=== PATIENT | male | born 1985 | race Caucasian/White ===

== ENCOUNTER 2019-07-18 16:31 | Emergency (ER) | payer SELFPAY ==
[2019-07-18] MEDS ORDERED: Sodium Chloride 0.9% 10 ML Syringe FLUSH PRN (17:42)
[2019-07-18] MEDS ORDERED: Sodium Chloride 0.9% 1,000 ML IV ONE (17:42)
[2019-07-18] MEDS ORDERED: Piperacillin/Tazobactam 4.5 GM in Sodium Chloride 0.9% 100 ML IV STA (17:52)
[2019-07-18] MEDS ORDERED: Ertapenem 1 GM in Sodium Chloride 0.9% 50 ML IV ONE (17:54)
--- NOTE | 2019-07-18 18:27 | EDM.PDOC ---
ED HPI GENERAL MEDICAL PROBLEM - General Chief Complaint: Abdominal Pain Stated Complaint: ABD PAIN Time Seen by Provider: 07/18/19 17:20 Source of Information: Reports: Patient History Limitations: Reports: No Limitations - History of Present Illness INITIAL COMMENTS - FREE TEXT/NARRATIVE: 33-year-old male is sent over from the walk-in clinic for ruptured appendicitis. Seen at the [facility]. Had labs and a CT done. White blood cell count is 21, hemoglobin 13.8, platelets 324. Sodium 139, potassium 4.0, chloride 100. Glucose 113. Creatinine 1.2. Anion gap 17. UA shows proteinuria. Negative for leukocytes and nitrites. Lipase of 16. Patient reports that he has been having lower quadrant abdominal pain for the last 10 days. He thought this was a gastroenteritis as he had similar episode about a month or 2 ago that lasted only a few days and then resolved. He reports that the pain has been consistent. It has been waxing and waning in intensity but is always present. Appreciated that is worse with movement. He did not have much of an appetite but feels hungry now. He reports symptoms of nausea and vomiting. He states he felt feverish and chilled. patient is on Coumadin for a DVT to the left leg 8 years ago. States he has not taken his Coumadin last 2 days. He denies any chest pain or any difficulty breathing. Patient is from [facility]. He is here working. Duration: Day(s): (10) Right Upper Abdomen Pain Score (Numeric/FACES): 2 - Related Data Allergies Allergy/AdvReac Type Severity Reaction Status Date / Time shellfish derived Allergy Vomiting Verified 07/18/19 16:53 Home Meds: Home Meds Warfarin [Coumadin] 5 mg PO DAILY 07/18/19 [History] Past Medical History Cardiovascular History: Reports: Blood Clots/VTE/DVT Other Cardiovascular History: 8-9 yrs ago Social & Family History - Tobacco Use Smoking Status *Q: Current Every Day Smoker Years of Tobacco use: 16 Packs/Tins Daily: 1 - Caffeine Use Caffeine Use: Reports: None - Recreational Drug Use Recreational Drug Use: No ED ROS GENERAL - Review of Systems Review Of Systems: See Below Constitutional: Reports: Fever, Chills, Malaise, Decreased Appetite Respiratory: Denies: Shortness of Breath Cardiovascular: Denies: Chest Pain GI/Abdominal: Reports: Abdominal Pain, Nausea, Vomiting ED EXAM, GI/ABD - Physical Exam Exam: See Below Exam Limited By: No Limitations General Appearance: Alert, WD/WN, Mild Distress, Thin Nose: Normal Inspection Throat/Mouth: Normal Inspection, Normal Voice, No Airway Compromise, Other (dry mucus membranes) Respiratory/Chest: No Respiratory Distress, Lungs Clear, Normal Breath Sounds Cardiovascular: Normal Peripheral Pulses, Regular Rate, Rhythm, No Murmur GI/Abdominal Exam: Normal Bowel Sounds, Soft, Guarding, Rebound, Tender (+ pain at [place]) Neurological: Alert, Oriented, Normal Cognition Psychiatric: Normal Affect, Normal Mood Skin Exam: Warm, Dry, Normal Color Course - Vital Signs Last Recorded V/S: Last Vital Signs Temp 99.4 F 07/18/19 16:48 Pulse 88 07/18/19 16:48 Resp 18 07/18/19 16:48 BP 114/71 07/18/19 16:48 Pulse Ox 97 07/18/19 16:48 - Orders/Labs/Meds Orders: Active Orders 24 hr Category Date Time Status Notify Provider Consults [RC] ASDIRECTED Care 07/18/19 17:44 Active Peripheral IV Care [RC] . DIRECTED Care 07/18/19 17:42 Active Consult to Physician [CONS] Stat Cons 07/18/19 17:42 Active Sodium Chloride 0.9% [Saline Flush] Med 07/18/19 17:42 Active 10 ml FLUSH ASDIRECTED PRN Peripheral IV Insertion Adult [OM.PC] Routine Oth 07/18/19 17:42 Ordered Medication Orders Sodium Chloride (Saline Flush) 10 ml FLUSH ASDIRECTED PRN PRN Reason: Keep Vein Open Last Admin: 07/18/19 17:52 Dose: 10 ml Labs: Laboratory Tests 07/18/19 Range/Units 18:50 PT 14.7 H (9.7-12.0) SECONDS INR 1.37 APTT 30 (22-31) SECONDS Meds: Medications Generic Name Dose Route Start Last Admin Trade Name Freq PRN Reason Stop Dose Admin Sodium Chloride 10 ml 07/18/19 17:42 07/18/19 17:52 Saline Flush FLUSH 10 ml ASDIRECTED PRN Administration Keep Vein Open Discontinued Medications Generic Name Dose Route Start Last Admin Trade Name Freq PRN Reason Stop Dose Admin Sodium Chloride 1,000 mls @ 999 mls/hr 07/18/19 17:42 07/18/19 17:52 Normal Saline IV 07/18/19 18:42 999 mls/hr ONETIME ONE Administration Piperacillin Sod/Tazobactam 100 mls @ 25 mls/hr 07/18/19 17:52 Sod 4.5 gm/ Sodium Chloride IV 07/18/19 21:51 NOW STA Ertapenem 1 gm/ Sodium 50 mls @ 100 mls/hr 07/18/19 17:54 07/18/19 18:33 Chloride IV 07/18/19 18:23 100 mls/hr ONETIME ONE Administration - Re-Assessments/Exams Free Text/Narrative Re-Assessment/Exam: 07/18/19 19:30 Dr. Cortes has come to the ER and has reviewed his images of the patient. Feels that he would benefit from drainage. Started invanz. Spoke with [place] [facility]. Able to view labs and imaging. Abscess measures 9 x [address] Rosado also agrees that IR should be involved. Spoke with Dr. Diamond, hospitalist on-call who agrees to accept the patient. Dr. Lott, interventional radiologist was also made aware; plan to place drains tomorrow. Patient is refusing ambulance transport. He has a ride to [place] and would like to go by private vehicle. We will give him a gram of Invanz and send him by private vehicle. He was advised to call 911 should he have an problems en route and go to the ER if anything changes on his way. Departure - Departure Time of Disposition: 19:33 Disposition: DC/Tfer to Acute Hospital 02 Condition: Fair Clinical Impression: Ruptured appendicitis, Abscess, periappendiceal - Discharge Information *PRESCRIPTION DRUG MONITORING PROGRAM REVIEWED*: No *COPY OF PRESCRIPTION DRUG MONITORING REPORT IN PATIENT CARYN: No Referrals: PCP,None [Primary Care Provider] - Forms: ED Department Discharge Additional Instructions: Go to [facility] in [place]. Dr. Mata, hospitalist, has agreed to accept you. [facility] is located at [address] in [place]. Call [phone] if you have any questions. Go to the ER if anything changes during your travels. Call 911 for any problems. - My Orders Last 24 Hours: My Active Orders 07/18/19 17:42 Peripheral IV Care [RC] . DIRECTED Consult to Physician [CONS] Stat Sodium Chloride 0.9% [Saline Flush] 10 ml FLUSH ASDIRECTED PRN Peripheral IV Insertion Adult [OM.PC] Routine 07/18/19 17:44 Notify Provider Consults [RC] ASDIRECTED - Assessment/Plan Last 24 Hours: My Active Orders 07/18/19 17:42 Peripheral IV Care [RC] . DIRECTED Consult to Physician [CONS] Stat Sodium Chloride 0.9% [Saline Flush] 10 ml FLUSH ASDIRECTED PRN Peripheral IV Insertion Adult [OM.PC] Routine 07/18/19 17:44 Notify Provider Consults [RC] ASDIRECTED
--- NOTE | 2019-07-18 18:28 | PCM.CONS ---
H&P History of Present Illness - General Date of Service: 07/18/19 Source of Information: Patient History Limitations: Reports: No Limitations - History of Present Illness Initial Comments - Free Text/Narative: Patient had RLQ abdominal pain for 2 weeks. sharp and dull. constant. nothing improves it. associated with nausea/vomiting/diarrhea and anorexia. He presented to the ED due to its persistence. he had similar pain 2 months ago that lasted for 3 days, he thought this is the same. Onset of Symptoms: Reports: Gradual Duration of Symptoms: Reports: Week(s): (2 weeks), Getting Worse Location: Reports: Abdomen Quality: Reports: Ache, Sharp Severity: Moderate Improves with: Reports: Immobilization, Medication Worsens with: Reports: Movement Associated Symptoms: Reports: Loss of Appetite, Malaise, Nausea/Vomiting Right Upper Abdomen Pain Score (Numeric/FACES): 2 - Related Data Allergies/Adverse Reactions: Allergies Allergy/AdvReac Type Severity Reaction Status Date / Time shellfish derived Allergy Vomiting Verified 07/18/19 16:53 Home Medications: Home Meds Warfarin [Coumadin] 5 mg PO DAILY 07/18/19 [History] Past Medical History Cardiovascular History: Reports: Blood Clots/VTE/DVT Other Cardiovascular History: 8-9 yrs ago Social & Family History - Tobacco Use Smoking Status *Q: Current Every Day Smoker Years of Tobacco use: 16 Packs/Tins Daily: 1 - Caffeine Use Caffeine Use: Reports: None - Recreational Drug Use Recreational Drug Use: No H&P Review of Systems - Review of Systems: Review Of Systems: See Below General: Reports: No Symptoms HEENT: Reports: No Symptoms Pulmonary: Reports: No Symptoms Cardiovascular: Reports: No Symptoms Gastrointestinal: Reports: Abdominal Pain, Anorexia, Nausea, Vomiting Genitourinary: Reports: No Symptoms Musculoskeletal: Reports: No Symptoms Skin: Reports: No Symptoms Psychiatric: Reports: No Symptoms Exam - Exam Exam: See Below - Vital Signs Vital Signs: Last Vital Signs Temp 99.4 F 07/18/19 16:48 Pulse 88 07/18/19 16:48 Resp 18 07/18/19 16:48 BP 114/71 07/18/19 16:48 Pulse Ox 97 07/18/19 16:48 Weight: 80.739 kg - Exam General: Alert, Oriented, Moderate Distress HEENT: Conjunctiva Clear Lungs: Clear to Auscultation, Normal Respiratory Effort Cardiovascular: Regular Rate, Regular Rhythm GI/Abdominal Exam: Soft, No Abnormal Bruit, No Mass, Distended (mildly), Tender (in the right lower quadrant) Consult PN Assessment/Plan Problem List Initiated/Reviewed/Updated: No Plan: I reviewed the labs from earlier today. WBC is 19. I reviewed CT imaging from earlier today. CT shows RLQ abscess adjacent to the cecum and ascending colon most likely from a ruptured appendix. Patient would need evaluation by interventional radiology for IR drainage and if that is not possible then he will need operative drainage. He may need to be transferred for IR evaluation. He is started on Zosyn which he should continue until the infection is controlled. I discussed this plan with the patient.
== END 2019-07-18 19:45 ==
LOC: JD.ED 16:31
DX: K35.33 Acute appendicitis with perforation, localized peritonitis, and gangrene, with abscess (principal); F17.210 Nicotine dependence, cigarettes, uncomplicated; Z86.718 Personal history of other venous thrombosis and embolism; Z91.013 Allergy to seafood; Z79.01 Long term (current) use of anticoagulants
CPT/HCPCS: 36415; 85610; 85730; 96361; 96365; 99284; J1335; J7040; J7050